=== PATIENT | male | born 1950 | race Caucasian/White ===

== ENCOUNTER 2024-01-24 06:23 | Day surgery (SDC) | payer MEDICARE, BC, SELFPAY ==
[2024-01-24 09:52] VITALS: BMI 29.3
[2024-01-24 09:53] VITALS: BMI 29.3
[2024-01-24 09:56] VITALS: BP 151/82
[2024-01-24 10:28] LABS: Glucose - Point of Care 98 mg/dl (70-99)
[2024-01-24 12:27] VITALS: BP 124/84
[2024-01-24 12:30] VITALS: BP 123/82
== END 2024-01-24 12:49 | disposition home or self-care (01) ==
LOC: GI 06:23
PROVIDERS: ATTENDING PHYSICIAN Internal Medicine Gastroenterology
DX: Z12.11 Encounter for screening for malignant neoplasm of colon (principal); K64.0 First degree hemorrhoids; Q43.8 Other specified congenital malformations of intestine; D12.2 Benign neoplasm of ascending colon; D12.3 Benign neoplasm of transverse colon; Z86.010 Personal history of colon polyps
CPT/HCPCS: 45385; 88305; 82962

== ENCOUNTER → 2024-02-21 11:02 | Outpatient (REF) | payer MEDICARE, BC, SELFPAY | LOC: RCS 11:02 | PROVIDERS: ATTENDING PHYSICIAN Internal Medicine Cardiovascular Disease; FAMILY PHYSICIAN Internal Medicine | DX: I10 Essential (primary) hypertension (principal); E78.5 Hyperlipidemia, unspecified; I77.810 Thoracic aortic ectasia | CPT/HCPCS: 93306 ==

== ENCOUNTER → 2024-03-18 07:30 | Outpatient (REF) | payer MEDICARE, BC, SELFPAY | LOC: RAD 07:30 | PROVIDERS: ATTENDING PHYSICIAN Internal Medicine Cardiovascular Disease; FAMILY PHYSICIAN Internal Medicine | DX: I77.819 Aortic ectasia, unspecified site (principal) | CPT/HCPCS: 71275; Q9967 ==

== ENCOUNTER → 2024-09-03 12:42 | Outpatient (REF) | payer MEDICARE, BC, SELFPAY | LOC: RAD 12:42 | PROVIDERS: ATTENDING PHYSICIAN Thoracic Surgery (Cardiothoracic Vascular Surgery); FAMILY PHYSICIAN Internal Medicine | DX: I77.810 Thoracic aortic ectasia (principal) | CPT/HCPCS: 71275; Q9967 ==

== ENCOUNTER → 2024-09-09 07:57 | Outpatient (REF) | payer MEDICARE, BC, SELFPAY | LOC: HWRCS 07:57 | PROVIDERS: ATTENDING PHYSICIAN Thoracic Surgery (Cardiothoracic Vascular Surgery) | DX: I77.810 Thoracic aortic ectasia (principal) | CPT/HCPCS: 93306 ==

== ENCOUNTER → 2025-01-06 13:04 | Outpatient (REF) | payer MEDICARE, BC, SELFPAY | LOC: MRI 3T 13:04 | PROVIDERS: ATTENDING PHYSICIAN Internal Medicine Gastroenterology; FAMILY PHYSICIAN Internal Medicine | DX: D49.0 Neoplasm of unspecified behavior of digestive system (principal) | CPT/HCPCS: 74183; A9575 ==